=== PATIENT | female | born 1960 | race Caucasian/White ===

== ENCOUNTER 2019-11-11 21:34 | Emergency (ER) | payer SELFPAY ==
[~2019-11-11] VITALS: Ht 165 cm; Wt 94.9 kg
[~2019-11-11 21:34] MED LIST: IRBE1TAB15 PO; TRIAMTERENE/HCTZ
--- OUTSIDE RECORDS SUMMARY | 2019-11-11 21:42 | XMS REPORT | Continuity of Care Document ---
Author Organization Unknown Address Unknown Phone Unavailable Allergies Active Description Code Type Severity Reaction Onset Reported/Identified Relationship to Patient Clinical Status Yes CODEINE SULFATE U NKNOWN UNKNOWN Medications There is no data. Problems Date Dx Coded Attending Type Code Diagnosis Diagnosed By 05/03/2018 W 466.0 ACUT E BRONCHITIS 05/03/2018 W J20.9 ACUT E BRONCHITIS, UNSPECIFIED 11/08/2018 W 300.00 ANX IETY STATE, UNSPECIFIED 11/08/2018 W 401.9 UNSP ECIFIED ESSENTIAL HYPERTENSION 11/08/2018 W F41.9 ANXI ETY DISORDER, UNSPECIFIED 11/08/2018 W I10 ESSENT IAL (PRIMARY) HYPERTENSION Procedures There is no data. Results Test Result Range BMP - 05/13/16 08:33 Anion Gap 15 6-14 BUN 19 mg/dL 5-25 Calcium 9.7 mg/dL 8.3-10.4 Chloride 103 mmol/L 95-114 CO2 26 mEq/L 22-33 Creat 0.67 mg/dL 0.50-1.50 eGFR 91 mL/min/1.73m2 >59 Glucose 106 mg/dL 70-110 Osmo 292 280-295 Potassium 4.0 mmol/L 3.5-5.3 Sodium 140 mmol/L 134-148 Hemoglobin A1C - 09/02/16 09:38 % A1C 5.90 % 5.40-6.60 AvGlu 134 mg/dL 70-110 Hemoglobin A1C - 09/29/19 06:51 % A1C 6.20 % 5.40-6.60 AvGlu 144 mg/dL 70-110 Encounters ACCT No. Visit Date/Time Discharge Status Pt. Type Provider Facility Loc./Unit Complaint [id number] 09/29/2019 06:50:00 09/29/2019 23:59 :00 DIS Outpatient Shanae Rendon [id number] 08/26/2019 13:37:00 08/26/2019 23:59 :00 DIS Outpatient Kimo Vaughan [id number] 07/15/2019 13:21:00 07/15/2019 23:59 :00 DIS Outpatient Kimo Vaughan [id number] 04/18/2019 16:06:00 04/18/2019 23:59: 00 DIS Outpatient Shanae Rendon [id number] 09/02/2016 09:32:00 09/02/2016 23:59: 00 DIS Outpatient Ethel Smith [id number] 05/13/2016 08:28:00 05/13/2016 23:59: 00 DIS Outpatient Ethel Smith [id number] 11/08/2018 12:50:00 Document Registration [id number] 05/03/2018 15:24:00 Document Registration
[2019-11-11] MEDS ORDERED: SERT50TA9 (21:50)
[2019-11-11] MEDS ORDERED: POT (21:50)
[2019-11-11] MEDS ORDERED: TRZ50T (21:50)
[2019-11-11] MEDS ORDERED: LOSA1TAB23 (21:50)
[2019-11-11] MEDS ORDERED: PRAV10TA (21:50)
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
[2019-11-11 23:00] VITALS: BP 154/83
[2019-11-11] MEDS ORDERED: RX-TRAMADOL 50 MG (ULTRAM) TAB PPK#4 PO STA (23:01)
[2019-11-11] MEDS ORDERED: TRM50T PO (23:02)
--- NOTE | 2019-11-12 09:00 | Diagnostic Imaging Report ---
INDICATION: Pain. 2 views were obtained. FINDINGS: There are degenerative changes in the knees and ankles bilaterally. No fracture or dislocation. There is a screw in the left calcaneus. IMPRESSION: Degenerative changes in the knees and ankles otherwise unremarkable. Dictated by: Dictated on workstation # [id number]
--- NOTE | 2019-11-12 09:14 | Diagnostic Imaging Report ---
INDICATION: Rib pain. Three views were obtained. FINDINGS: Heart size is normal. Lungs are clear. There is no pleural effusion or pneumothorax. There are no displaced rib fractures. IMPRESSION: No acute cardiopulmonary abnormality. No displaced rib fractures. Dictated by: Dictated on workstation # [id number]
== END 2019-11-11 23:00 | disposition home or self-care (01) ==
LOC: EDUNIT# 21:34 → ER 21:35
DX: S80.12XA Contusion of left lower leg, initial encounter (principal); R07.81 Pleurodynia; I10 Essential (primary) hypertension; R40.2142 Coma scale, eyes open, spontaneous, at arrival to emergency department; R40.2252 Coma scale, best verbal response, oriented, at arrival to emergency department; R40.2362 Coma scale, best motor response, obeys commands, at arrival to emergency department; Z88.5 Allergy status to narcotic agent; V86.19XA Passenger of other special all-terrain or other off-road motor vehicle injured in traffic accident, initial encounter
CPT/HCPCS: 71100

== ENCOUNTER → 2020-08-24 | Outpatient (CLI) | payer OTHER ==
[~2020-08-24] MED LIST changes: +LOSA1TAB23; +POT; +PRAV10TA; +SERT-413; +TRM50T PO; +TRZ50T
== END ==
LOC: GIR 16:27
PROVIDERS: ATTEND Family Medicine
DX: Z01.89 Encounter for other specified special examinations (principal)
CPT/HCPCS: 84132